=== PATIENT | female | born 1955 | race Caucasian/White ===

== ENCOUNTER 2021-01-01 10:07 | Emergency (ER) | payer BC ==
[~2021-01-01] VITALS: Ht 167.6 cm; Wt 77.3 kg
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
[2021-01-01] MEDS ORDERED: SODIUM CHLORIDE 0.9% 1,000ML IVBOLUS ONE (11:00)
[2021-01-01] MEDS ORDERED: SODIUM CHLORIDE FLUSH 10ML SYR IVF ONE (11:00)
[2021-01-01] MEDS ORDERED: PLEASE ENTER ALLERGIES MC SCH (11:30)
[2021-01-01 13:15] VITALS: BP 126/74
--- NOTE | 2021-01-01 13:20 | NUR ---
PT REC'VD DISCHARGE INSTRUCTIONS AND EDUCATION. PT HAD NO FURTHER QUESTIONS. PT AMBULATED TO DC AREA, STEADY GAIT. PT PROVIDED TAXI CAB VOUCHER.
== END 2021-01-01 14:22 | disposition home or self-care (01) ==
LOC: ED 13:35
DX: F10.220 Alcohol dependence with intoxication, uncomplicated (principal); Y90.0 Blood alcohol level of less than 20 mg/100 ml
CPT/HCPCS: 96360; 96361; 99283; J7030

== ENCOUNTER 2021-01-01 15:38 | Emergency (ER) | payer BC ==
[~2021-01-01] VITALS: Ht 170.2 cm; Wt 90.0 kg
[2021-01-01 15:42] VITALS: BP 136/72
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
--- NOTE | 2021-01-01 16:53 | NUR ---
Report from GLORIA terry.. Pt moved in room 3. Connected to pulse ox, b/p, rails up bed low, knees knotched. Sitter in line of site.
--- NOTE | 2021-01-01 17:50 | NUR ---
Pt up with this clinical writer to bathroom, required x1 assist. Voided large amts urine,, walked back to bed.
--- NOTE | 2021-01-01 17:53 | NUR ---
Pt has small abrasion/skin tear to left arm. Dressed/bandaid by EMT. Pt constantly asking all contacts for adderrall.
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
--- NOTE | 2021-01-01 18:03 | NUR ---
Pt ambulatory with assist x1 to bathroom, pt asking every staff member for "adderrall".
--- NOTE | 2021-01-01 18:50 | NUR ---
Report to GLORIA Harrison
--- NOTE | 2021-01-01 18:53 | NUR ---
received report from GLORIA Cardenas
--- NOTE | 2021-01-01 19:32 | NUR ---
Patient given discharge instructions and they have confirmed that they understand the instructions. Patient ambulatory with steady gait.
== END 2021-01-01 19:35 | disposition home or self-care (01) ==
LOC: ED 17:00
DX: F10.220 Alcohol dependence with intoxication, uncomplicated (principal); Z72.9 Problem related to lifestyle, unspecified; Y90.0 Blood alcohol level of less than 20 mg/100 ml
CPT/HCPCS: 99283

== ENCOUNTER 2021-01-01 21:08 | Emergency (ER) | payer BC ==
[~2021-01-01] VITALS: Ht 170.2 cm; Wt 74.5 kg
--- NOTE | 2021-01-01 21:24 | NUR ---
KIP ELAM FROM [facility]. +ETOH. THIS IS THE THIRD TIME PT BROUGHT TO THIS ER TODAY FOR ETOH. PT CONNECTED TO MONITORING. CALL LIGHT IN REACH. FALL PRECAUTIONS IN PLACE. CALL LIGHT IN REACH. ERMD AT BEDSIDE FOR ASSESSMENT. PT TO BE MTF.
[2021-01-01] MEDS ORDERED: THIAMINE 100MG TABLET PO ONE (21:30)
[2021-01-01] MEDS ORDERED: THIAMINE 100MG TABLET ONE (21:44)
[2021-01-01] MEDS ORDERED: ONDANSETRON ODT 4 MG ONE (21:44)
[2021-01-01] MEDS ORDERED: PLEASE ENTER HEIGHT MC SCH (22:00)
[2021-01-01] MEDS ORDERED: ONDANSETRON ODT 4 MG PO ONE (22:00)
--- NOTE | 2021-01-01 22:19 | NUR ---
PT TRANSFERRED FROM [facility] TO BEDSIDE COMMODE WITH CGA. PT BACK TO [facility] TO SLEEP. PT CONNECTED TO MONITORING. CALL LIGHT IN REACH
--- NOTE | 2021-01-01 22:33 | NUR ---
REPORT OF PT FROM GLORIA BYRD AND ASSUMING CARE OF PT AT THIS TIME.
[2021-01-01 22:46] VITALS: BP 117/68
--- NOTE | 2021-01-01 22:46 | NUR ---
REPORT GIVEN TO ASTNO CASTRO. PT MOVED FROM ROOM 9 TO ROOM 16. PT CONNECTED TO MONITORING. OXYGEN IN PLACE FOR SAFETY. CALL LIGHT IN REACH. FALL PRECAUTIONS IN PLACE.
--- NOTE | 2021-01-02 00:15 | NUR ---
PT ASLEEP IN [facility] AT THIS TIME WITH NADN. EQUAL BILATERAL RISE AND FALL OF CHEST NOTED FROM [place]. PT HAS CALL LIGHT WITHIN REACH.
--- NOTE | 2021-01-02 01:00 | NUR ---
REPORT OF PT TO GLORIA GREENWOOD. ALL QUESTIONS ANSWERED.
[2021-01-02] MEDS ORDERED: IBUPROFEN 600 MG TABLET ONE (02:56)
[2021-01-02] MEDS ORDERED: IBUPROFEN 600 MG TABLET PO ONE (03:00)
[2021-01-02] MEDS ORDERED: LORazepam 1MG TABLET ONE (04:48)
[2021-01-02] MEDS ORDERED: LORazepam 1MG TABLET PO ONE (05:00)
--- NOTE | 2021-01-02 06:35 | NUR ---
PT AWAKENED AND ABLE TO SPEAK AND IS CAOX3 AND KNOWS WHERE SHE IS AND WHO SHE IS AND THE DATE. PT STOOD UP AND IS AMBULATING TO THE DISCHARGE DESK. PT STATES SHE WOULD LIKE TO HAVE A CAB CALLED FOR HER AND SHE WILL PAY FOR IT. F/U AND D/C INSTRUCTIONS GIVEN TO PT AND SHE V/U. PT SAYS SHE DOESN'T KNOW WHERE HER CAR IS, BUT KNOWS HER BOYFRIEND HAS THE CAR. PT ADVISED IT WAS BETTER THAT WAY AND THAT SHE DIDN'T DRIVE. INSTRUCTIONS ON ETOH CESSATION GIVEN AND PT SAYS SHE V/U. PT D/C'D WITHOUT ISSUE.
== END 2021-01-02 06:38 | disposition home or self-care (01) ==
LOC: ED 23:50 → UNDOADMOB 01-02 00:08 → EDIP 01-02 00:08 → ED 01-02 06:38
DX: F10.220 Alcohol dependence with intoxication, uncomplicated (principal); Z72.9 Problem related to lifestyle, unspecified; Y90.0 Blood alcohol level of less than 20 mg/100 ml
CPT/HCPCS: 99284; Q0162